=== PATIENT | male | born 1945 | race Caucasian/White ===

== ENCOUNTER 2018-08-17 14:46 | Emergency (ER) | payer OTHER ==
[~2018-08-17] VITALS: Ht 172.7 cm; Wt 79.4 kg
[~2018-08-17 14:46] MED LIST: AVAPRO300 MG PO; CELEBREX100 MG PO; GLUMETZA1000 MG PO; MAX FE PO; NEURONTIN300 MG PO; NORVASC2.5 M1 PO; RAMIPRIL10 MG PO; VASOTEC5 MG PO
[2018-08-17] MEDS ORDERED: INSULIN (15:17)
== END 2018-08-17 20:49 | disposition home or self-care (01) ==
LOC: ER 14:46
DX: G45.8 Other transient cerebral ischemic attacks and related syndromes (principal)

== ENCOUNTER 2018-09-15 19:49 | Emergency (ER) | payer OTHER ==
[~2018-09-15] VITALS: Ht 172.7 cm; Wt 79.4 kg
[~2018-09-15 19:49] MED LIST changes: +INSULIN
== END 2018-09-16 | disposition home or self-care (01) ==
LOC: ER 19:49
DX: G47.419 Narcolepsy without cataplexy (principal)

== ENCOUNTER 2018-09-24 14:12 | Emergency (ER) | payer OTHER ==
[~2018-09-24] VITALS: Ht 172.7 cm; Wt 78.5 kg
== END 2018-09-24 20:56 ==
LOC: ER 14:12
DX: R20.0 Anesthesia of skin (principal)

== ENCOUNTER 2018-12-10 18:46 | Emergency (ER) | payer OTHER ==
[~2018-12-10] VITALS: Ht 172.7 cm; Wt 76.7 kg
[2018-12-10] MEDS ORDERED: LANTUS SOL100 UNIT/1 SUBCUTANEO (19:06)
[2018-12-10] MEDS ORDERED: METOPROLOL SUC100 MG PO (19:07)
== END 2018-12-11 00:12 | disposition home or self-care (01) ==
LOC: ER 18:46
DX: G45.9 Transient cerebral ischemic attack, unspecified (principal)